=== PATIENT | female | born 1995 | race Caucasian/White ===

== ENCOUNTER 2016-04-24 16:08 | Emergency (ER) | payer BC, OTHER ==
--- NOTE | 2016-04-24 16:19 | ER Document Report ---
ED Medical Screen (RME) - General Stated Complaint: BACK PAIN Notes: 20 yo 11 weeks gestation c/o bilat flank pain, n/v. diagnosed with kidney infection last week, treated with Rocephin x 3 and oral Keflex but c/o worsening symptoms. - Related Data Allergies/Adverse Reactions: No Known Allergies Allergy (Unverified 04/24/16 16:15)
[2016-04-24 16:46] LABS: ABSOLUTE EOSINOPHILS # (AUTO) 0.2 10^3/uL (0.0-0.6); ABSOLUTE LYMPHOCYTES (AUTO) 2.8 10^3/uL (0.5-4.7); ABSOLUTE MONOCYTES (AUTO) 0.7 10^3/uL (0.1-1.4); ABSOLUTE NEUT (AUTO) 5.9 10^3/uL (1.7-8.2); BASOPHILS % (AUTO) 0.5 % (0-2); EOSINOPHILS % (AUTO) 1.6 % (0-6); HEMATOCRIT 37.5 % (36.0-47.0); HEMOGLOBIN 12.9 g/dL (12.0-15.5); HGB HCT DIFFERENCE 1.2; MEAN CORPUSCULAR HEMOGLOBIN 30.1 pg (27.0-33.4); MEAN CORPUSCULAR HGB CONC 34.4 g/dL (32.0-36.0); MEAN CORPUSCULAR VOLUME 88 fl (80-97); MONOCYTES % (AUTO) 7.3 % (3-13); RED BLOOD COUNT 4.27 10^6/uL (3.72-5.28); SEGMENTED NEUTROPHILS % (AUTO) 61.6 % (42-78); WHITE BLOOD COUNT 9.6 10^3/uL (4.0-10.5)
[2016-04-24 16:53] LABS: APPEARANCE,URINE CLEAR; BILIRUBIN,URINE NEGATIVE (NEGATIVE); GLUCOSE, URINE NEGATIVE (NEGATIVE); KETONES,URINE NEGATIVE (NEGATIVE); LEUKOCYTE ESTERASE,URINE NEGATIVE (NEGATIVE); NITRITE,URINE POSITIVE (NEGATIVE); PROTEIN,URINE NEGATIVE (NEGATIVE); URINE SPECIFIC GRAVITY 1.013
[2016-04-24 16:56] LABS: ALANINE AMINOTRANSFERASE 23 U/L (9-52); ALBUMIN 4.5 g/dL (3.5-5.0); ALKALINE PHOSPHATASE 64 U/L (38-126); ANION GAP 12 (5-19); ASPARTATE AMINO TRANSFERASE 18 U/L (14-36); BILIRUBIN,TOTAL 0.4 mg/dL (0.2-1.3); BLOOD UREA NITROGEN 6 mg/dL (7-20); CALCIUM 10.2 mg/dL (8.4-10.2); CARBON DIOXIDE 22 mmol/L (22-30); CHLORIDE 104 mmol/L (98-107); GLUCOSE 96 mg/dL (75-110); POTASSIUM 4.1 mmol/L (3.6-5.0); SODIUM 138.1 mmol/L (137-145); TOTAL PROTEIN 7.1 g/dL (6.3-8.2)
[2016-04-24] MEDS ORDERED: HYDROCODONE/ACETAMINOPHEN 5-325 MG 6 TAB/DSPK PO PRN (20:53)
--- NOTE | 2016-04-24 20:55 | ER Document Report ---
ED General - General Chief Complaint: Flank Pain Stated Complaint: BACK PAIN Notes: Patient is a 20-year-old female who is currently who presents with ongoing bilateral flank pain. States she was seen last week in [place] and diagnosed with pyelonephritis. She was treated with Keflex and states that her symptoms have not yet improved. Does describe a constant, dull, severe pain in the bilateral flanks. States she's been trying Tylenol at home with minimal improvement. Nothing worsens or symptoms. Notes ongoing dysuria. Denies any vaginal bleeding or discharge. She is not having vomiting or diarrhea. No chest pain or shortness of breath. She has not had fever. She's been taking the antibiotic as directed TRAVEL OUTSIDE OF THE [place] IN LAST 30 DAYS: No - Related Data Allergies/Adverse Reactions: No Known Allergies Allergy (Unverified 04/24/16 16:15) Past Medical History - General Information source: Patient - Social History Smoking Status: Never Smoker Chew tobacco use (# tins/day): No Frequency of alcohol use: None Drug Abuse: None Lives with: Spouse/Significant other Family History: Reviewed & Not Pertinent Patient has suicidal ideation: No Patient has homicidal ideation: No Renal/ Medical History: Denies: Hx Peritoneal Dialysis Review of Systems - Review of Systems Notes: Constitutional: Negative for fever. HENT: Negative for sore throat. Eyes: Negative for visual changes. Cardiovascular: Negative for chest pain. Respiratory: Negative for shortness of breath. Gastrointestinal: Negative for abdominal pain, vomiting or diarrhea. Positive for bilateral flank pain Genitourinary: Positive for dysuria. Musculoskeletal: Negative for back pain. Skin: Negative for rash. Neurological: Negative for headaches, weakness or numbness. 10 point ROS negative except as marked above and in HPI. Physical Exam - Vital signs Vitals: Temp Pulse BP Pulse Ox 97.7 F 100 123/70 96 04/24/16 18:53 04/24/16 18:53 04/24/16 18:53 04/24/16 18:53 Interpretation: Normal Notes: PHYSICAL EXAMINATION: GENERAL: Well-appearing, well-nourished and in no acute distress. HEAD: Atraumatic, normocephalic. EYES: Pupils equal round and reactive to light, extraocular movements intact, sclera anicteric, conjunctiva are normal. ENT: nares patent, oropharynx clear without exudates. Moist mucous membranes. NECK: Normal range of motion, supple without lymphadenopathy LUNGS: Breath sounds clear to auscultation bilaterally and equal. No wheezes rales or rhonchi. HEART: Regular rate and rhythm without murmurs ABDOMEN: Soft, nontender, normoactive bowel sounds. No guarding, no rebound. No masses appreciated. Bilateral CVA tenderness EXTREMITIES: Normal range of motion, no pitting or edema. No cyanosis. NEUROLOGICAL: No focal neurological deficits. Moves all extremities spontaneously and on command. PSYCH: Normal mood, normal affect. SKIN: Warm, Dry, normal turgor, no rashes or lesions noted. Course - Re-evaluation Re-evalutation: 04/24/16 20:53 Patient is currently 11 weeks presenting with bilateral flank pain after being diagnosed with pyelonephritis approximately one week ago. She is still on Keflex. Labs today are completely unremarkable without any evidence of acute kidney injury or ongoing urinary tract infection. Bedside ultrasound does show any evidence of hydronephrosis. Intrauterine identified a bedside ultrasound, cardiac activity 156 bpm. Active movement. I suspect patient's pain is related to ongoing inflammation in the kidneys after her infection and should result resolve in the next coming days. Instructed her to follow-up with her primary care doctor as scheduled.At this time will discharge with return precautions and follow-up recommendations. Verbal discharge instructions given a the bedside and opportunity for questions given. Medication warnings reviewed. Patient is in agreement with this plan and has verbalized understanding of return precautions and the need for primary care follow-up in the next 24-72 hours. - Vital Signs Vital signs: Temp Pulse Resp BP Pulse Ox 98.0 F 84 16 125/75 100 04/24/16 21:10 04/24/16 21:10 04/24/16 21:10 04/24/16 21:10 04/24/16 21:10 - Laboratory Result Diagrams: 04/24/16 16:25 04/24/16 16:25 Laboratory results interpreted by me: 04/24/16 04/24/16 16:25 16:25 BUN 6 L Creatinine 0.40 L Urine Nitrite POSITIVE H Urine Urobilinogen 4.0 H Discharge - Discharge Clinical Impression: Bilateral flank pain Condition: Good Disposition: HOME, SELF-CARE Additional Instructions: Please take the [place] only at night to help control your pain so you can sleep. The pain should improve in the next 2-3 days and the need to return if not improving in that time or if getting worse. Please also return if he develops vomiting, fever greater than 100.4F, began having vaginal bleeding or discharge , or have any other symptoms that are worrisome to you.
[2016-04-24 21:36] VITALS: BP 125/75
== END 2016-04-24 21:18 | disposition home or self-care (01) ==
LOC: ER 16:08
DX: O26.91 Pregnancy related conditions, unspecified, first trimester (principal); R10.9 Unspecified abdominal pain; Z3A.11 11 weeks gestation of pregnancy
CPT/HCPCS: 36415; 80053; 81001; 85025; 99284

== ENCOUNTER 2016-05-01 17:43 | Emergency (ER) | payer BC, OTHER ==
--- NOTE | 2016-05-01 18:05 | ER Document Report ---
ED Medical Screen (RME) - General Stated Complaint: PAINFUL URINATION,FLANK PAIN Notes: 20 yo female c/o bilat flank pain, dysuria x 3 weeks. treated for kidney infection 2 weeks ago. treated with Rocephin x 2 and keflex but reports symptoms are worsening. + n/v. . 13 weeks gestation. + spotting. pt has hx/o DVT and PE, presently on Lovenox stroke last month, some residual left sided weakness. TRAVEL OUTSIDE OF THE [place] IN LAST 30 DAYS: No - Related Data Allergies/Adverse Reactions: No Known Allergies Allergy (Unverified 04/24/16 16:15) Past Medical History Renal/ Medical History: Denies: Hx Peritoneal Dialysis Physical Exam - Vital signs Vitals: Temp Pulse Resp BP Pulse Ox 98.0 F 105 H 20 125/74 98 05/01/16 17:52 05/01/16 17:52 05/01/16 17:52 05/01/16 17:52 05/01/16 17:52 Course - Vital Signs Vital signs: Temp Pulse Resp BP Pulse Ox 98.0 F 105 H 20 125/74 98 05/01/16 17:52 05/01/16 17:52 05/01/16 17:52 05/01/16 17:52 05/01/16 17:52
[2016-05-01 18:52] LABS: ABSOLUTE EOSINOPHILS # (AUTO) 0.1 10^3/uL (0.0-0.6); ABSOLUTE LYMPHOCYTES (AUTO) 2.8 10^3/uL (0.5-4.7); ABSOLUTE MONOCYTES (AUTO) 0.8 10^3/uL (0.1-1.4); BASOPHILS % (AUTO) 0.3 % (0-2); EOSINOPHILS % (AUTO) 0.8 % (0-6); HEMATOCRIT 37.8 % (36.0-47.0); HEMOGLOBIN 12.7 g/dL (12.0-15.5); HGB HCT DIFFERENCE 0.3; LYMPHOCYTES % (AUTO) 22.3 % (13-45); MEAN CORPUSCULAR HEMOGLOBIN 29.5 pg (27.0-33.4); MEAN CORPUSCULAR HGB CONC 33.5 g/dL (32.0-36.0); MEAN CORPUSCULAR VOLUME 88 fl (80-97); MONOCYTES % (AUTO) 6.3 % (3-13); RED BLOOD COUNT 4.29 10^6/uL (3.72-5.28); RED CELL DISTRIBUTION WIDTH 13.1 % (11.5-14.0); SEGMENTED NEUTROPHILS % (AUTO) 70.3 % (42-78); WHITE BLOOD COUNT 12.7 10^3/uL (4.0-10.5)
[2016-05-01 21:14] LABS: APPEARANCE,URINE SLIGHTLY-CLOUDY; BILIRUBIN,URINE NEGATIVE (NEGATIVE); GLUCOSE, URINE NEGATIVE (NEGATIVE); KETONES,URINE TRACE mg/dL (NEGATIVE); LEUKOCYTE ESTERASE,URINE NEGATIVE (NEGATIVE); NITRITE,URINE NEGATIVE (NEGATIVE); PROTEIN,URINE NEGATIVE (NEGATIVE); URINE SPECIFIC GRAVITY 1.027; UROBILINOGEN,URINE NEGATIVE mg/dL (<2.0)
[2016-05-01] MEDS ORDERED: OXYCODONE-ACETAMINOPHEN 5-325 MG TABLET PO ONE (21:55)
[2016-05-01] MEDS ORDERED: HYDROCODONE/ACETAMINOPHEN 5-325 MG 6 TAB/DSPK PO PRN (22:12)
--- NOTE | 2016-05-01 22:13 | ER Document Report ---
ED General - General Chief Complaint: Urinary Problem Stated Complaint: PAINFUL URINATION,FLANK PAIN Notes: Patient is a 20-year-old who presents with bilateral flank pain that has been present for the past 2 weeks after she was diagnosed with pyelonephritis. Does describe the pain as a constant, dull, aching pain. I saw this patient one week ago for the same complaint and she states that her symptoms have not improved since that time. Denies any associated fever, nausea, vomiting, vaginal bleeding or discharge. She is currently 12 weeks . She has not yet followed up with primary care doctor regarding today's concerns. She is not noticing improves or worsens or symptoms. TRAVEL OUTSIDE OF THE [place] IN LAST 30 DAYS: No - Related Data Allergies/Adverse Reactions: No Known Allergies Allergy (Verified 05/01/16 18:02) Past Medical History - General Information source: Patient - Social History Smoking Status: Current Some Day Smoker Chew tobacco use (# tins/day): No Frequency of alcohol use: None Drug Abuse: None Lives with: Spouse/Significant other Family History: Reviewed & Not Pertinent Patient has suicidal ideation: No Patient has homicidal ideation: No Renal/ Medical History: Denies: Hx Peritoneal Dialysis Review of Systems - Review of Systems Notes: Constitutional: Negative for fever. HENT: Negative for sore throat. Eyes: Negative for visual changes. Cardiovascular: Negative for chest pain. Respiratory: Negative for shortness of breath. Gastrointestinal: Negative for abdominal pain, vomiting or diarrhea. Genitourinary: Positive for dysuria and bilateral flank pain Musculoskeletal: Negative for back pain. Skin: Negative for rash. Neurological: Negative for headaches, weakness or numbness. 10 point ROS negative except as marked above and in HPI. Physical Exam - Vital signs Vitals: Temp Pulse Resp BP Pulse Ox 98.0 F 105 H 20 125/74 98 05/01/16 17:52 05/01/16 17:52 05/01/16 17:52 05/01/16 17:52 05/01/16 17:52 Interpretation: Tachycardic Notes: PHYSICAL EXAMINATION: GENERAL: Well-appearing, well-nourished and in no acute distress. HEAD: Atraumatic, normocephalic. EYES: Pupils equal round and reactive to light, extraocular movements intact, sclera anicteric, conjunctiva are normal. ENT: nares patent, oropharynx clear without exudates. Moist mucous membranes. NECK: Normal range of motion, supple without lymphadenopathy LUNGS: Breath sounds clear to auscultation bilaterally and equal. No wheezes rales or rhonchi. HEART: Regular rate and rhythm without murmurs ABDOMEN: Soft, nontender, normoactive bowel sounds. No guarding, no rebound. No masses appreciated. Severe bilateral CVA tenderness. EXTREMITIES: Normal range of motion, no pitting or edema. No cyanosis. NEUROLOGICAL: No focal neurological deficits. Moves all extremities spontaneously and on command. PSYCH: Normal mood, normal affect. SKIN: Warm, Dry, normal turgor, no rashes or lesions noted. Course - Re-evaluation Re-evalutation: 05/01/16 22:13 Patient presents ongoing bilateral flank pain which has not improved since I last saw days ago. Again a bedside ultrasound does not show any evidence of hydronephrosis and living intrauterine is identified with a heart rate of 152. She does have persistent bilateral CVA tenderness concerning for a possible renal abscess versus obstruction although again there is no evidence of this on ultrasound at the bedside. Her urinalysis continues to be clear without any evidence of infection. Her laboratories again today are unremarkable. I wanted to obtain a formal ultrasound of the kidneys to better evaluate. Likewise I informed the patient about complete a pelvic exam and would consider further abdominal imaging if her pain persisted. 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 The patient has chosen to leave the facility against medical advice. The relevant issues have been reviewed and discussed with the patient and family at the bedside. At the time of this assessment there is no indication for involuntary commitment. The patient is alert, oriented, and able to express clearly their reasoning for not wanting to remain in the emergency department for further treatment. The patient is not clinically psychotic, intoxicated, and denies and suicidal ideation. Differential or suspected diagnoses based on medical screening exam: Possible renal abscess, obstruction The patient is aware of the concerning diagnoses and acknowledges understanding of the reasons for the following recommendations: That she remain in the emergency department for complete evaluation of her continuing bilateral flank pain The following recommendations/services were offered and refused: Renal ultrasound, consideration of additional abdominal imaging should pain failure to improve, pelvic examination The following risks were explained: , permanent disability, loss of function , loss of Clinical impression: Patient is competent to make decisions regarding the medical that is being offered. - Vital Signs Vital signs: Temp Pulse Resp BP Pulse Ox 97.7 F 82 20 120/76 98 05/01/16 20:00 05/01/16 20:00 05/01/16 20:50 05/01/16 20:00 05/01/16 20:00 - Laboratory Result Diagrams: 05/01/16 18:15 Laboratory results interpreted by me: 05/01/16 05/01/16 05/01/16 18:15 18:15 20:50 WBC 12.7 H Absolute Neutrophils 9.0 H Beta HCG, Quant 00886.00 H Urine Ketones TRACE H Discharge - Discharge Clinical Impression: Bilateral flank pain Condition: Fair Disposition: AGAINST MEDICAL ADVICE Additional Instructions: You need a more complete evaluation than what we were able to get done today. Please return if you want to complete your workup which would include a kidney ultrasound and possibly an abdominal MRI to help clarify if you are having anything more serious going on. Please also contact urology and obgyn for follow -up.
[2016-05-01 22:30] VITALS: BP 120/76
== END 2016-05-01 22:24 | disposition left against medical advice (07) ==
LOC: ER 17:43
DX: O26.91 Pregnancy related conditions, unspecified, first trimester (principal); R30.0 Dysuria; R10.9 Unspecified abdominal pain; O99.331 Smoking (tobacco) complicating pregnancy, first trimester; F17.200 Nicotine dependence, unspecified, uncomplicated; Z3A.12 12 weeks gestation of pregnancy
CPT/HCPCS: 36415; 81001; 84702; 85025; 99283

== ENCOUNTER 2016-05-04 00:57 | Emergency (ER) | payer BC, OTHER ==
[2016-05-04] MEDS ORDERED: NORMAL SALINE 1000 ML 1,000 ML IV ONE (01:26)
--- NOTE | 2016-05-04 01:37 | ER Document Report ---
ED General - General Chief Complaint: Urinary Problem Stated Complaint: FEVER Notes: Patient is a 20-year-old female who is who presents with complaints of being possible mission for polynephritis. She says that she recently just left [facility] and she was going to be admitted there for pyelonephritis. She said she left the hospital because she wanted to be closer to home. She was given Rocephin there. She complains of bilateral back pain. Some dysuria. No abnormal vaginal discharge or bleeding. She says this is her fourth . She's had 2 miscarriages and one live child. She had an ultrasound at [facility] which she said showed "swollen kidneys ". She was seen here 3 days ago for the same symptoms. Urinalysis was completely negative. She was recommend that we do official ultrasound. She refuses this. She left AMA. TRAVEL OUTSIDE OF THE [place] IN LAST 30 DAYS: No - Related Data Allergies/Adverse Reactions: No Known Allergies Allergy (Verified 05/04/16 01:17) Past Medical History - Social History Smoking Status: Current Some Day Smoker Chew tobacco use (# tins/day): No Frequency of alcohol use: None Drug Abuse: None Family History: Reviewed & Not Pertinent Patient has suicidal ideation: No Patient has homicidal ideation: No Renal/ Medical History: Denies: Hx Peritoneal Dialysis Review of Systems - Review of Systems Notes: My Normal Review Basic REVIEW OF SYSTEMS: CONSTITUTIONAL : Denies fever, chills, or sweats. Denies recent illness. EENT: Denies eye, ear, throat, or mouth pain or symptoms. Denies nasal or sinus congestion. RESPIRATORY: Denies cough, cold, or chest congestion. Denies shortness of breath, difficulty breathing, or wheezing. GASTROINTESTINAL: Denies abdominal pain. Denies nausea, vomiting, or diarrhea. Denies constipation. Last BM: GENITOURINARY: Some dysuria FEMALE GENITOURINARY: Denies vaginal bleeding, abnormal or irregular periods. LMP: Currently MUSCULOSKELETAL: Denies neck or back pain or joint pain or swelling. SKIN: Denies rash or skin lesions. NEUROLOGICAL: Denies altered mental status or loss of consciousness. Denies headache. Denies weakness or paralysis or loss of use of either side. Denies problems with gait or speech. Denies sensory or motor loss. ALL OTHER SYSTEMS REVIEWED AND NEGATIVE. Physical Exam - Vital signs Vitals: Temp Pulse Resp BP Pulse Ox 97.7 F 80 20 114/53 L 99 05/04/16 01:17 05/04/16 01:17 05/04/16 01:05/04/16 01:05/04/16 01:17 - Notes Notes: General Appearance: Well nourished, alert, cooperative, no acute distress, mild obvious discomfort. Vitals: reviewed, See vital signs table. Head: no swelling or tenderness to the head Eyes: PERRL, EOMI, Conjuctiva clear Mouth: No decreasd moisture Neck: Supple, no neck tenderness, No thyromegaly Lungs: No wheezing, No rales, No rhonci, No accessory muscle use, good air exchange bilaterally. Heart: Normal rate, Regular rythm, No murmur, no rub Abdomen: Normal BS, soft, No rigidity, No reproducible abdominal tenderness to palpation, No guarding, no rebound, no abdominal masses, no organomegaly Extremities: strength 5/5 in all extremities, good pulses in all extremities, no swelling or tenderness in the extremities, no edema. Skin: warm, dry, appropriate color, no rash Neuro: speech clear, oriented x 3, normal affect, responds appropriately to questions. Course - Re-evaluation Re-evalutation: 05/04/16 02:06 Patient did give me verbal permission as well as sign a records request document so I could get information from [facility]. I did call the ER there and spoke with the ER physician, Dr. Vazquez, who cared for her. They are going to send the official hard copies of the records. She did go over the results with me over the phone the help expedite things. Ultrasound did not show any abnormalities. They did both an OB ultrasound and a renal ultrasound. Both were normal. Her urinalysis showed only 1 white blood cell. There are no signs of infection on the UA. She did not have a fever there. Her temp was 37.4C. Her CBC showed a mildly elevated white blood cell count 12.6. They did offer admission because of her continued pain but the patient refused and signed out AMA because she wanted to come down here instead. - Vital Signs Vital signs: Temp Pulse Resp BP Pulse Ox 97.7 F 80 20 114/53 L 99 05/04/16 01:17 05/04/16 01:17 05/04/16 01:17 05/04/16 01:17 05/04/16 01:17 - Laboratory Result Diagrams: 05/04/16 01:35 05/04/16 01:35 Laboratory results interpreted by me: 05/04/16 05/04/16 05/04/16 01:35 01:35 01:35 WBC 13.0 H Absolute Neutrophils 8.3 H Carbon Dioxide 21 L BUN 5 L Creatinine 0.41 L Urine Nitrite POSITIVE H Ur Leukocyte Esterase LARGE H - Transfer of Care Notes: 05/04/16 03:17 I did review all the records sent from [facility]. Her renal ultrasounds and OB ultrasounds were completely normal. Her white blood cell count there was 12.6. Here is 13. There is really no negligible difference. AT [facility] she did have positive nitrites with 1 white blood cell. Here her urine has positive nitrites with 7 white blood cells; however, there is also a large amount of squamous cells in her urine which suggested this could potentially be contaminant. Patient clinically does not look very ill. Her vital signs do not at all suggest pyelonephritis. It appears that this back pain has been ongoing for many weeks since she left [place]. This is now her third visit here to the ER and her urinalysis has never looked concerning for pyelonephritis. She denies any abnormal vaginal discharge or bleeding. I did discuss the case with Dr. Minnie Saucedo, our automotive service advisor family consumer scientist, who agrees with me that the laboratory findings are more consistent with that of a contaminated urine or mild UTI. I feel that the patient can be discharged home being that the patient has no fever, only minimally elevated white blood cell count, and completely normal vital signs. Dr. Saucedo agrees. Dr. Saucedo said that she would follow up the patient very closely at her office on Friday. She requests the patient call the office very early Friday morning for close follow-up appointment and she will follow-up on the urine culture results and recheck the patient and also help establish her for her continued OB care. I did explain the plan to the patient. She is very agreeable to this. She does agree to return to ER immediately if she develops fever, vomiting, or feels that she is worsening. Dictation of this chart was performed using voice recognition software; therefore, there may be some unintended grammatical errors. Discharge - Discharge Clinical Impression: Qualifiers: Weeks of gestation: unspecified Qualified Code(s): Z33.1 - state, incidental UTI (urinary tract infection) Qualifiers: Urinary tract infection type: site unspecified Hematuria presence: without hematuria Qualified Code(s): N39.0 - Urinary tract infection, site not specified Condition: Good Disposition: HOME, SELF-CARE Additional Instructions: URINARY TRACT INFECTION: Your evaluation indicates that you have a urinary tract infection. This is due to germs growing in the bladder. This is a common problem. This infection usually responds quickly to antibiotics. Your antibiotic should be taken exactly as prescribed. Drink plenty of fluids -- three to four quarts a day. Occasionally, a bladder anesthetic will be prescribed to help stop the feeling of urgency until the antibiotic has a chance to clear the infection. This may cause your urine to be dark orange. Certain urine infections require a culture. If the doctor obtained a culture, the results will be back in two days. You should call to see if a change in treatment is needed. A repeat urinalysis after you finish treatment is often recommended. The physician will let you know if further testing is required. Call the doctor if you develop fever, chills, flank pain, inability to urinate, or blood in the urine. ANTIBIOTIC THERAPY: You have been given an antibiotic prescription. It's important that you take all the medication, unless instructed otherwise by your physician. Failure to complete the entire course can result in relapse of your condition. Common side effects of antibiotics include nausea, intestinal cramping, or diarrhea. Women may develop vaginal yeast infections, and babies can get yeast (thrush) in the mouth following the use of antibiotics. Contact your physician if you develop significant side effects from this medication. Allergy to this antibiotic can result in hives, wheezing, faintness, or itching. If symptoms of allergy occur, stop the medication and call the doctor. NITROFURANTOIN (MACRODANTIN, MACROBID): You have received a prescription for nitrofurantoin (Macrodantin). This antibiotic is used for urinary tract infections. Women who are or nursing should notify the physician before taking this medicine. If you have ever had a problem caused by this medication in the past, be sure the physician is aware of it. Common side effects of this medicine include nausea, vomiting, or decreased appetite. Notify your physician if these side effects become severe. Immediately stop this medicine and call the physician if you develop cough , shortness of breath, chest pain, weakness, jaundice (yellow color of the skin and whites of the eyes), or a skin rash. FOLLOW-UP CARE: If you have been referred to a physician for follow-up care, call the physician s office for an appointment as you were instructed or within the next two days. If you experience worsening or a significant change in your symptoms, notify the physician immediately or return to the Emergency Department at any time for re-evaluation. Please take the antibiotic as prescribed. Please follow up closely with the [facility] on Friday. Please call the office and tell them you were seen in the ER and your case was discussed with Dr. Saucedo. Please inform them that Dr. Saucedo wants reevaluated on Friday in the office. Your urine has been sent for culture. The culture results should be back on Friday and will be discussed with you when you're reevaluated at the [facility]. It is extremely important that you return to ER immediately if you have fevers, vomiting, vaginal bleeding, abnormal vaginal discharge, or feel that your worsening in any way. Prescriptions: Nitrofurantoin/Nitrofuran Mac [Macrobid 100 mg Capsule] 1 tab PO BID #20 capsule Referrals: MINNIE SAUCEDO MD [ACTIVE STAFF] - 05/06/16
[2016-05-04 01:52] LABS: ABSOLUTE BASOPHILS # (AUTO) 0.1 10^3/uL (0.0-0.2); ABSOLUTE EOSINOPHILS # (AUTO) 0.2 10^3/uL (0.0-0.6); ABSOLUTE LYMPHOCYTES (AUTO) 3.7 10^3/uL (0.5-4.7); ABSOLUTE MONOCYTES (AUTO) 0.8 10^3/uL (0.1-1.4); ABSOLUTE NEUT (AUTO) 8.3 10^3/uL (1.7-8.2); BASOPHILS % (AUTO) 0.6 % (0-2); EOSINOPHILS % (AUTO) 1.4 % (0-6); HEMATOCRIT 39.3 % (36.0-47.0); HEMOGLOBIN 13.3 g/dL (12.0-15.5); HGB HCT DIFFERENCE 0.6; LYMPHOCYTES % (AUTO) 28.3 % (13-45); MEAN CORPUSCULAR HEMOGLOBIN 29.8 pg (27.0-33.4); MEAN CORPUSCULAR HGB CONC 33.8 g/dL (32.0-36.0); MEAN CORPUSCULAR VOLUME 88 fl (80-97); MONOCYTES % (AUTO) 6.1 % (3-13); RED BLOOD COUNT 4.45 10^6/uL (3.72-5.28); SEGMENTED NEUTROPHILS % (AUTO) 63.6 % (42-78)
[2016-05-04 01:58] LABS: APPEARANCE,URINE SLIGHTLY-CLOUDY; BILIRUBIN,URINE NEGATIVE (NEGATIVE); GLUCOSE, URINE NEGATIVE (NEGATIVE); KETONES,URINE NEGATIVE (NEGATIVE); LEUKOCYTE ESTERASE,URINE LARGE (NEGATIVE); NITRITE,URINE POSITIVE (NEGATIVE); PROTEIN,URINE NEGATIVE (NEGATIVE); URINE SPECIFIC GRAVITY 1.009; UROBILINOGEN,URINE NEGATIVE mg/dL (<2.0)
[2016-05-04 02:05] LABS: ANION GAP 13 (5-19); BLOOD UREA NITROGEN 5 mg/dL (7-20); CALCIUM 9.8 mg/dL (8.4-10.2); CARBON DIOXIDE 21 mmol/L (22-30); CHLORIDE 107 mmol/L (98-107); CREATININE RESULT 0.41 mg/dL (0.52-1.25); GLUCOSE 102 mg/dL (75-110); POTASSIUM 3.7 mmol/L (3.6-5.0); SODIUM 141.3 mmol/L (137-145)
[2016-05-04] MEDS ORDERED: ACETAMINOPHEN 325 MG TABLET PO ONE (02:11)
[2016-05-04] MEDS ORDERED: ONDANSETRON HCL INJ/PF 4 MG/2 ML SDV IV ONE (02:11)
[2016-05-04] MEDS ORDERED: NITROFURANTOIN MONOHYD/M-CRYST 100 MG CAPSULE PO ONE (03:12)
[2016-05-04 03:55] VITALS: BP 109/51
== END 2016-05-04 03:57 | disposition home or self-care (01) ==
LOC: ER 00:57
DX: N39.0 Urinary tract infection, site not specified (principal); R39.198 Other difficulties with micturition; R50.9 Fever, unspecified; F17.210 Nicotine dependence, cigarettes, uncomplicated; Z33.1 Pregnant state, incidental
CPT/HCPCS: 99283; 96374; 36415; 87086; 85025; 87088; 80048; 81001; J2405; J7030; J8499

== ENCOUNTER → 2016-05-07 | Outpatient (CLI) | payer BC, OTHER | LOC: OD 11:21 | PROVIDERS: ATTEND Urology | DX: N39.0 Urinary tract infection, site not specified (principal) | CPT/HCPCS: 74000; 87086; 87088; 87186 ==

== ENCOUNTER 2016-05-24 17:48 | Emergency (ER) | payer BC, OTHER ==
[2016-05-24 18:24] VITALS: BP 117/87
[2016-05-24] MEDS ORDERED: OXYCODONE-ACETAMINOPHEN 5-325 MG TABLET PO ONE (18:24)
--- NOTE | 2016-05-24 18:26 | ER Document Report ---
ED Medical Screen (RME) - General Stated Complaint: FALL/R KNEE INJURY Notes: Patient states she was working on rebuilding her fire pit and lost her balance hitting right knee on tree branches. Has a piece of branch sticking out of her knee. Pulled all the other ones out. Patient states she has had about 10 surgeries to the right knee in the past. I have greeted and performed a rapid initial assessment of this patient. A comprehensive ED assessment and evaluation of the patient, analysis of test results and completion of the medical decision making process will be conducted by additional ED providers. TRAVEL OUTSIDE OF THE [place] IN LAST 30 DAYS: No - Related Data Allergies/Adverse Reactions: No Known Allergies Allergy (Verified 05/24/16 18:24) Past Medical History Renal/ Medical History: Denies: Hx Peritoneal Dialysis - Immunizations Hx Diphtheria, Pertussis, Tetanus Vaccination: Yes Physical Exam - Extremities Notes: Patient with a 3-4 inch piece of wood sticking out of medial right knee. No bleeding at this time.
--- NOTE | 2016-05-24 19:04 | ER Document Report ---
ED General - General Chief Complaint: Knee Injury Stated Complaint: FALL/R KNEE INJURY Mode of Arrival: Ambulatory Information source: Patient Notes: 20-year-old female with previous right knee surgeries presents after falling into a fireplace area and having a piece of wood stick in her. Patient removed to the larger twig but beleived a smaller one ot be in deeper TRAVEL OUTSIDE OF THE [place] IN LAST 30 DAYS: No - HPI Onset: Just prior to arrival Onset/Duration: Sudden Quality of pain: Achy Severity: Mild Pain Level: 1 Associated symptoms: None Exacerbated by: Denies Relieved by: Denies Similar symptoms previously: No Recently seen / treated by doctor: No - Related Data Allergies/Adverse Reactions: No Known Allergies Allergy (Verified 05/24/16 18:24) Past Medical History - Social History Smoking Status: Current Every Day Smoker Cigarette use (# per day): Yes Chew tobacco use (# tins/day): No Smoking Education Provided: No Frequency of alcohol use: None Drug Abuse: None Family History: Reviewed & Not Pertinent Renal/ Medical History: Denies: Hx Peritoneal Dialysis - Immunizations Hx Diphtheria, Pertussis, Tetanus Vaccination: Yes Review of Systems - Review of Systems Notes: REVIEW OF SYSTEMS: CONSTITUTIONAL : Denies fever, chills, or sweats. Denies recent illness. EENT: Denies eye, ear, throat, or mouth pain or symptoms. Denies nasal or sinus congestion or discharge. Denies throat, tongue, or mouth swelling or difficulty swallowing. CARDIOVASCULAR: Denies chest pain. Denies palpitations or racing or irregular heart beat. Denies ankle edema. RESPIRATORY: Denies cough, cold, or chest congestion. Denies shortness of breath, difficulty breathing, or wheezing. GASTROINTESTINAL: Denies abdominal pain or distention. Denies nausea, vomiting , or diarrhea. Denies blood in vomitus, stools, or per rectum. Denies black, tarry stools. Denies constipation. GENITOURINARY: Denies difficulty urinating, painful urination, burning, frequency, blood in urine, or discharge. FEMALE GENITOURINARY: Denies vaginal bleeding, heavy or abnormal periods, irregular periods. Denies vaginal discharge or odor. MUSCULOSKELETAL: Denies back or neck pain or stiffness. Denies joint pain or swelling. SKIN: Laceration right medial knee HEMATOLOGIC : Denies easy bruising or bleeding. LYMPHATIC: Denies swollen, enlarged glands. NEUROLOGICAL: Denies confusion or altered mental status. Denies passing out or loss of consciousness. Denies dizziness or lightheadedness. Denies headache. Denies weakness or paralysis or loss of use of either side. Denies problems with gait or speech. Denies sensory loss, numbness, or tingling. Denies seizures. PSYCHIATRIC: Denies anxiety or stress. Denies depression, suicidal ideation, or homicidal ideation. ALL OTHER SYSTEMS REVIEWED AND NEGATIVE. Dictation was performed using [employer] voice recognition software PHYSICAL EXAMINATION: GENERAL: Well-appearing, well-nourished and in no acute distress. HEAD: Atraumatic, normocephalic. EYES: Pupils equal round extraocular movements intact, conjunctiva are normal. ENT: Nares patent NECK: Normal range of motion LUNGS: No respiratory distress Musculoskeletal: Normal range of motion NEUROLOGICAL: Normal speech, normal gait. PSYCH: Normal mood, normal affect. SKIN: Small twig sticking out of laceration measuring 2 cm of the right medial aspect of the knee Physical Exam - Vital signs Vitals: Temp Pulse Resp BP Pulse Ox 98.0 F 116 H 18 117/87 H 100 05/24/16 18:20 05/24/16 18:20 05/24/16 18:20 05/24/16 18:20 05/24/16 18:20 Course - Re-evaluation Re-evalutation: 05/24/16 19:35 Twig Was removed with no difficulty, area extensively cleansed, xray no acute abnormality will dc with antiovitcs and follow up with ortho After performing a Medical Screening Examination, I estimate there is LOW risk for INTRACRANIAL HEMORRHAGE, UNSTABLE SPINE FRACTURE, CENTRAL CORD SYNDROME, CAUDA EQUINA, THORACIC AORTIC DISSECTION, PNEUMOTHORAX, PERFORATED BOWEL, RUPTURED ABDOMINAL AORTIC ANEURYSM, ACUTE TENDON RUPTURE, COMPARTMENT SYNDROME, or OPEN FRACTURE, thus I consider the discharge disposition reasonable. Also, there is no evidence or peritonitis, sepsis, or toxicity. The patient and I have discussed the diagnosis and risks, and we agree with discharging home to follow-up with their primary doctor with the understanding that symptoms and presentations can change. We also discussed returning to the Emergency Department immediately if new or worsening symptoms occur. We have discussed the symptoms which are most concerning (e.g., bloody stool, fever, changing or worsening pain, vomiting) that necessitate immediate return. - Vital Signs Vital signs: Temp Pulse Resp BP Pulse Ox 98.0 F 116 H 18 117/87 H 100 05/24/16 18:20 05/24/16 18:20 05/24/16 18:20 05/24/16 18:20 05/24/16 18:20 - Diagnostic Test Radiology reviewed: Image reviewed, Reports reviewed Discharge - Discharge Clinical Impression: Foreign body of knee Qualifiers: Encounter type: initial encounter Laterality: right Qualified Code(s): S80.251A - Superficial foreign body, right knee, initial encounter Condition: Stable Disposition: HOME, SELF-CARE Instructions: Suspected Internal Knee Injury ([facility]) Additional Instructions: Return immediately if there is any sign of infection or any other concerns Prescriptions: Clindamycin HCl 300 mg PO Q6 #40 capsule Hydrocodone/Acetaminophen [[place] 5-325 mg Tablet] 1 tab PO Q6 #14 tablet Referrals: SHERYL VELA MD [ACTIVE STAFF] - Follow up in 3-5 days
== END 2016-05-24 19:30 | disposition home or self-care (01) ==
LOC: ER 17:48
DX: S80.251A Superficial foreign body, right knee, initial encounter (principal); W19.XXXA Unspecified fall, initial encounter; F17.210 Nicotine dependence, cigarettes, uncomplicated
CPT/HCPCS: 99283

== ENCOUNTER → 2016-06-18 | Outpatient (CLI) | payer BC, OTHER ==
[2016-06-18 17:23] LABS: ABSOLUTE LYMPHOCYTES (AUTO) 2.9 10^3/uL (0.5-4.7); ABSOLUTE MONOCYTES (AUTO) 0.9 10^3/uL (0.1-1.4); ABSOLUTE NEUT (AUTO) 9.2 10^3/uL (1.7-8.2); BASOPHILS % (AUTO) 0.3 % (0-2); EOSINOPHILS % (AUTO) 0.4 % (0-6); HEMATOCRIT 34.5 % (36.0-47.0); HEMOGLOBIN 11.8 g/dL (12.0-15.5); HGB HCT DIFFERENCE 0.9; MEAN CORPUSCULAR HEMOGLOBIN 29.9 pg (27.0-33.4); MEAN CORPUSCULAR HGB CONC 34.3 g/dL (32.0-36.0); MEAN CORPUSCULAR VOLUME 87 fl (80-97); MONOCYTES % (AUTO) 6.9 % (3-13); RED BLOOD COUNT 3.96 10^6/uL (3.72-5.28); RED CELL DISTRIBUTION WIDTH 14.3 % (11.5-14.0); SEGMENTED NEUTROPHILS % (AUTO) 70.4 % (42-78); WHITE BLOOD COUNT 13.1 10^3/uL (4.0-10.5)
[2016-06-18 18:04] LABS: ERYTHROCYTE SEDIMENTATION RATE 28 mm/hr (0-20)
== END ==
LOC: OD 16:17
PROVIDERS: ATTEND Physician Assistant
DX: T81.30XD Disruption of wound, unspecified, subsequent encounter (principal)
CPT/HCPCS: 36415; 85025; 85652; 86140

== ENCOUNTER 2016-07-31 16:58 | Outpatient (CLI) | payer BC, OTHER ==
--- NOTE | 2016-07-31 19:09 | RADIOLOGY REPORT (SQ) ---
EXAM DESCRIPTION: U/S OB LIMITED COMPLETED DATE/TIME: 07/31/2016 6:56 pm REASON FOR STUDY: cervical length, rule out labor COMPARISON: None. TECHNIQUE: Limited transvaginal and transabdominal grayscale ultrasound for evaluation of specific r equested obstetrical parameters. LIMITATIONS: None. FINDINGS: CERVICAL LENGTH: 4.5 cm closed with fluid posterior. MARIAH: 5.2 cm. FHR: 162 beats per minute. PRESENTATION: Transverse OTHER: No other significant findings. IMPRESSION: LIMITED OBSTETRICAL ULTRASOUND WITH MEASURED PARAMETERS DELINEATED ABOVE. Trimester of : Second trimester - 13 weeks 1 day to 27 weeks 6 days. TECHNICAL DOCUMENTATION: JOB ID: [id number]- All Rights Reserved
== END 2016-07-31 19:00 | disposition home or self-care (01) ==
LOC: LC 16:58
PROVIDERS: ATTEND Obstetrics & Gynecology
PROC: 4A1HXCZ Monitoring of Products of Conception, Cardiac Rate, External Approach (ICD-10-PCS; principal; 2016-07-31)
DX: O47.02 False labor before 37 completed weeks of gestation, second trimester (principal); Z3A.25 25 weeks gestation of pregnancy
CPT/HCPCS: 76815

== ENCOUNTER 2016-08-27 17:25 | Emergency (ER) | payer BC, OTHER ==
[2016-08-27 18:01] VITALS: BP 147/99
[2016-08-27] MEDS ORDERED: HYDROCODONE/ACETAMINOPHEN 5-325 MG TABLET PO ONE (18:23)
[2016-08-27] MEDS ORDERED: IBUPROFEN 600 MG TABLET PO ONE (18:24)
--- NOTE | 2016-08-27 18:27 | ER Document Report ---
ED Medical Screen (RME) - General Chief Complaint: Post Problem Stated Complaint: POST OP COMPLICATION Time Seen by Provider: 08/27/16 18:18 Notes: Patient is a 20-year-old female, , presents with bleeding from her C- section wound. She had a on 08/02 for a distressed 25 week fetus at [facility]. Her wound dehisced 2 weeks later and she was taken for emergent repair at [facility]. For the past 2 hours, she noticed bleeding from the wound, similar to when her wound dehisced last time. PE: surgical wound, with small amount of bleeding from wound, mild tenderness around wound, no surrounding erythema I have greeted and performed a rapid initial assessment of this patient. A comprehensive ED assessment and evaluation of the patient, analysis of test results and completion of the medical decision making process will be conducted by additional ED providers. TRAVEL OUTSIDE OF THE [place] IN LAST 30 DAYS: No - Related Data Allergies/Adverse Reactions: No Known Allergies Allergy (Verified 05/24/16 18:24) Past Medical History Renal/ Medical History: Denies: Hx Peritoneal Dialysis - Immunizations Hx Diphtheria, Pertussis, Tetanus Vaccination: Yes Physical Exam - Vital signs Vitals: Temp Pulse Resp BP Pulse Ox 98.1 F 93 20 147/99 H 98 08/27/16 17:59 08/27/16 17:59 08/27/16 17:59 08/27/16 17:59 08/27/16 17:59 Course - Vital Signs Vital signs: Temp Pulse Resp BP Pulse Ox 98.1 F 93 20 147/99 H 98 08/27/16 17:59 08/27/16 17:59 08/27/16 17:59 08/27/16 17:59 08/27/16 17:59
[2016-08-27 18:41] LABS: ABSOLUTE BASOPHILS # (AUTO) 0.1 10^3/uL (0.0-0.2); ABSOLUTE EOSINOPHILS # (AUTO) 0.2 10^3/uL (0.0-0.6); ABSOLUTE MONOCYTES (AUTO) 0.6 10^3/uL (0.1-1.4); BASOPHILS % (AUTO) 0.6 % (0-2); EOSINOPHILS % (AUTO) 2.7 % (0-6); HEMATOCRIT 36.7 % (36.0-47.0); HEMOGLOBIN 12.1 g/dL (12.0-15.5); HGB HCT DIFFERENCE -0.4; LYMPHOCYTES % (AUTO) 33.3 % (13-45); MEAN CORPUSCULAR HEMOGLOBIN 30.2 pg (27.0-33.4); MEAN CORPUSCULAR VOLUME 92 fl (80-97); RED BLOOD COUNT 4.01 10^6/uL (3.72-5.28); RED CELL DISTRIBUTION WIDTH 13.9 % (11.5-14.0); SEGMENTED NEUTROPHILS % (AUTO) 56.4 % (42-78); WHITE BLOOD COUNT 8.9 10^3/uL (4.0-10.5)
--- NOTE | 2016-08-27 19:17 | ER Document Report ---
ED General - General Chief Complaint: Post Problem Stated Complaint: POST OP COMPLICATION Time Seen by Provider: 08/27/16 18:18 Notes: Patient is a 20-year-old female who had an abdominal performed earlier in August with a wound dehiscence afterwards that required repair on the of this month who presents with a small amount of bleeding from the area and increased pain. States this started spontaneously while she was sitting on her couch. Since that time she has had a mild, dull, aching pain to the affected area. Notes that the majority of the bleeding has been coming from the left wound. Sutures are still in place. She has not seen a doctor who actually performed the closure after she had dehiscence. Denies any trauma to the area and states she has been following all recommended activity guidelines. Nothing improves or worsens her pain or bleeding. TRAVEL OUTSIDE OF THE [place] IN LAST 30 DAYS: No - Related Data Allergies/Adverse Reactions: No Known Allergies Allergy (Verified 05/24/16 18:24) Past Medical History - General Information source: Patient - Social History Smoking Status: Current Every Day Smoker Chew tobacco use (# tins/day): No Frequency of alcohol use: None Drug Abuse: None Lives with: Spouse/Significant other Family History: Reviewed & Not Pertinent Patient has suicidal ideation: No Patient has homicidal ideation: No Renal/ Medical History: Denies: Hx Peritoneal Dialysis Past Surgical History: Reports: Hx Orthopedic Surgery - Immunizations Hx Diphtheria, Pertussis, Tetanus Vaccination: Yes Review of Systems - Review of Systems Notes: Constitutional: Negative for fever. HENT: Negative for sore throat. Eyes: Negative for visual changes. Cardiovascular: Negative for chest pain. Respiratory: Negative for shortness of breath. Gastrointestinal: Negative for abdominal pain, vomiting or diarrhea. Genitourinary: Negative for dysuria. Musculoskeletal: Negative for back pain. Skin: Positive for wound bleeding Neurological: Negative for headaches, weakness or numbness. 10 point ROS negative except as marked above and in HPI. Physical Exam - Vital signs Vitals: Temp Pulse Resp BP Pulse Ox 98.1 F 93 20 147/99 H 98 08/27/16 17:59 08/27/16 17:59 08/27/16 17:59 08/27/16 17:59 08/27/16 17:59 Interpretation: Hypertensive Notes: PHYSICAL EXAMINATION: GENERAL: Well-appearing, well-nourished and in no acute distress. HEAD: Atraumatic, normocephalic. EYES: Pupils equal round and reactive to light, extraocular movements intact, sclera anicteric, conjunctiva are normal. ENT: nares patent, oropharynx clear without exudates. Moist mucous membranes. NECK: Normal range of motion, supple without lymphadenopathy LUNGS: Breath sounds clear to auscultation bilaterally and equal. No wheezes rales or rhonchi. HEART: Regular rate and rhythm without murmurs ABDOMEN: Soft, nontender, normoactive bowel sounds. No guarding, no rebound. No masses appreciated. EXTREMITIES: Normal range of motion, no pitting or edema. No cyanosis. NEUROLOGICAL: No focal neurological deficits. Moves all extremities spontaneously and on command. PSYCH: Normal mood, normal affect. SKIN: Warm, Dry, normal turgor, there is a well-healed wound that continues to have Prolene sutures in place. There is a scant amount of bleeding from the left most aspect of the surgical incision without any evidence of wound dehiscence Course - Re-evaluation Re-evalutation: 08/27/16 19:15 Patient presents with concerns of possible repeat wound dehiscence from her C- section. Patient actually had a surgical repair on the of this month and still has Prolene sutures in place. There is no evidence of wound dehiscence, small area of bleeding around one of the left most sutures is identified but again there is no evidence of actual dehiscence anywhere. I think that this is unlikely in the setting that she still has sutures in place and have explained this to the patient. I have asked her to follow-up with the surgeon who performed a repeat surgical closure and have reviewed signs and symptoms that would warrant return to the emergency department. - Vital Signs Vital signs: Temp Pulse Resp BP Pulse Ox 98.1 F 93 20 147/99 H 98 08/27/16 17:59 08/27/16 17:59 08/27/16 17:59 08/27/16 17:59 08/27/16 17:59 - Laboratory Result Diagrams: 08/27/16 18:30 Discharge - Discharge Clinical Impression: Wound infection/hemorrhage, obstetric surgical, condition Condition: Good Disposition: HOME, SELF-CARE Additional Instructions: Please return to the emergency department if the wound opens, you have worsening pain, persistent bleeding from the area, or any other symptoms that are worrisome to you. Please follow-up with the surgeon who performed your operation.
== END 2016-08-27 19:33 | disposition home or self-care (01) ==
LOC: ER 17:25
DX: O86.0 Infection of obstetric surgical wound (principal); O99.335 Smoking (tobacco) complicating the puerperium
CPT/HCPCS: 36415; 85025; 99283

== ENCOUNTER → 2017-02-13 | Outpatient (CLI) | payer BC, OTHER ==
--- NOTE | 2017-02-13 14:02 | RADIOLOGY REPORT (SQ) ---
EXAM DESCRIPTION: CT HEAD WITHOUT COMPLETED DATE/TIME: 02/13/2017 1:54 pm REASON FOR STUDY: HEAD INJURY COMPARISON: None. TECHNIQUE: Axial images acquired through the brain without intravenous contrast. Images reviewed wi th bone, brain and subdural windows. Images stored on PACS. All CT scanners at this facility use dose modulation, iterative reconstruction, and/or weight based d osing when appropriate to reduce radiation dose to as low as reasonably achievable (ALARA). [facility]: Dose Right [facility]: CareDose [facility]: Dose Right [facility]: Teradose 4D [facility]: SquadMail RADIATION DOSE: CT Rad equipment meets quality standard of care and radiation dose reduction techniq ues were employed. CTDIvol: 49.0 mGy. DLP: 783 mGy-cm. mGy. LIMITATIONS: None. FINDINGS: VENTRICLES: Normal size and contour. CEREBRUM: No masses. No hemorrhage. No midline shift. No evidence for acute infarction. Normal gra y/white matter differentiation. No areas of low density in the white matter. CEREBELLUM: No masses. No hemorrhage. No alteration of density. No evidence for acute infarction. EXTRAAXIAL SPACES: No fluid collections. No masses. ORBITS AND GLOBE: No intra- or extraconal masses. Normal contour of globe without masses. CALVARIUM: No fracture. PARANASAL SINUSES: No fluid or mucosal thickening. SOFT TISSUES: No mass or hematoma. A few skin frida in the scalp. OTHER: No other significant finding. IMPRESSION: NORMAL BRAIN CT WITHOUT CONTRAST. EVIDENCE OF ACUTE STROKE: NO. COMMENT: Quality ID # [id number]: Final reports with documentation of one or more dose reduction techniques (e.g., Automated exposure control, adjustment of the mA and/or kV according to patient size, use of iterative reconstruction technique) TECHNICAL DOCUMENTATION: JOB ID: [id number]- All Rights Reserved
== END ==
LOC: RAD 13:33
PROVIDERS: ATTEND Nurse Practitioner Family
DX: S09.90XA Unspecified injury of head, initial encounter (principal); X58.XXXA Exposure to other specified factors, initial encounter; Y93.9 Activity, unspecified; Y92.9 Unspecified place or not applicable; Y99.9 Unspecified external cause status
CPT/HCPCS: 70450

== ENCOUNTER 2018-01-16 15:01 | Emergency (ER) | payer BC, OTHER ==
[2018-01-16 15:32] LABS: APPEARANCE,URINE CLOUDY; BILIRUBIN,URINE NEGATIVE (NEGATIVE); COLOR,URINE YELLOW; GLUCOSE, URINE NEGATIVE (NEGATIVE); KETONES,URINE NEGATIVE (NEGATIVE); LEUKOCYTE ESTERASE,URINE TRACE (NEGATIVE); NITRITE,URINE NEGATIVE (NEGATIVE); PROTEIN,URINE NEGATIVE (NEGATIVE); URINE SPECIFIC GRAVITY 1.016; UROBILINOGEN,URINE NEGATIVE mg/dL (<2.0)
--- NOTE | 2018-01-16 16:01 | ER Document Report ---
ED Medical Screen (RME) - General Chief Complaint: Possible Kidney Stone Stated Complaint: POSSIBLE KIDNEY STONE Time Seen by Provider: 01/16/18 15:49 Mode of Arrival: Ambulatory Information source: Patient Notes: Patient is a 22-year-old female who presents to the emergency department with chief complaint of right lower abdominal pain. Patient reports the pain started suddenly at 6 AM and has been constant since then. Patient reports this feels like a sharp stabbing pain. Patient denies any nausea, vomiting, diarrhea or fever. Patient does report anorexia. Patient states pain is worse with movement. Patient does report a history of kidney stones in the past. She states that at first she thought this might be a kidney stone however her kidney stones typically start with pain in the flank with gradual progression to lower quadrant pain. This time she states the pain started more in her mid abdomen has settled down towards the right lower quadrant. Patient declines the need for any medication for pain or nausea. Exam: Soft mildly tender abdomen, rebound tenderness to periumbilical area and right lower quadrant. I have greeted and performed a rapid initial assessment of this patient. A comprehensive ED assessment and evaluation of the patient, analysis of test results and completion of the medical decision making process will be conducted by additional ED providers. Dictation of this chart was performed using voice recognition software; therefore, there may be some unintended grammatical errors. TRAVEL OUTSIDE OF THE [place] IN LAST 30 DAYS: No - Related Data Allergies/Adverse Reactions: No Known Allergies Allergy (Verified 05/24/16 18:24) Past Medical History Renal/ Medical History: Denies: Hx Peritoneal Dialysis Past Surgical History: Reports: Hx Orthopedic Surgery - Immunizations Hx Diphtheria, Pertussis, Tetanus Vaccination: Yes Physical Exam - Vital signs Vitals: Temp Pulse Resp BP Pulse Ox 98.1 F 98 16 138/87 H 96 01/16/18 15:06 01/16/18 15:06 01/16/18 15:06 01/16/18 15:06 01/16/18 15:06 Course - Vital Signs Vital signs: Temp Pulse Resp BP Pulse Ox 98.1 F 98 16 138/87 H 96 01/16/18 15:06 01/16/18 15:06 01/16/18 15:06 01/16/18 15:06 01/16/18 15:06 - Laboratory Laboratory results interpreted by me: 01/16/18 15:10 Ur Leukocyte Esterase TRACE H Doctor's Discharge - Discharge Referrals: BENNY PERSAUD, [facility] [Primary Care Provider] - Follow up as needed
[2018-01-16] MEDS ORDERED: ONDANSETRON HCL INJ/PF 4 MG/2 ML SDV IV ONE ×2 (16:53→18:36)
[2018-01-16] MEDS ORDERED: MORPHINE SULFATE 10 MG/ML INJ IV ONE ×2 (16:53→18:36)
[2018-01-16 17:07] LABS: ABSOLUTE EOSINOPHILS # (AUTO) 0.3 10^3/uL (0.0-0.6); ABSOLUTE LYMPHOCYTES (AUTO) 2.4 10^3/uL (0.5-4.7); ABSOLUTE MONOCYTES (AUTO) 0.5 10^3/uL (0.1-1.4); ABSOLUTE NEUT (AUTO) 5.5 10^3/uL (1.7-8.2); BASOPHILS % (AUTO) 0.4 % (0-2); EOSINOPHILS % (AUTO) 2.9 % (0-6); HEMATOCRIT 41.1 % (36.0-47.0); HEMOGLOBIN 14.1 g/dL (12.0-15.5); LYMPHOCYTES % (AUTO) 27.8 % (13-45); MEAN CORPUSCULAR HEMOGLOBIN 30.7 pg (27.0-33.4); MEAN CORPUSCULAR HGB CONC 34.3 g/dL (32.0-36.0); MEAN CORPUSCULAR VOLUME 90 fl (80-97); MONOCYTES % (AUTO) 6.1 % (3-13); PLATELET COUNT 326 10^3/uL (150-450); RED BLOOD COUNT 4.58 10^6/uL (3.72-5.28); RED CELL DISTRIBUTION WIDTH 14.3 % (11.5-14.0); SEGMENTED NEUTROPHILS % (AUTO) 62.8 % (42-78); TOTAL CELLS COUNTED % (AUTO) 100 %; WHITE BLOOD COUNT 8.8 10^3/uL (4.0-10.5)
[2018-01-16 17:42] LABS: ALANINE AMINOTRANSFERASE 30 U/L (9-52); ALBUMIN 5.2 g/dL (3.5-5.0); ALKALINE PHOSPHATASE 74 U/L (38-126); ANION GAP 14 (5-19); ASPARTATE AMINO TRANSFERASE 24 U/L (14-36); BILIRUBIN,DIRECT 0.3 mg/dL (0.0-0.4); BILIRUBIN,TOTAL 0.3 mg/dL (0.2-1.3); BLOOD UREA NITROGEN 10 mg/dL (7-20); CALCIUM 10.1 mg/dL (8.4-10.2); CARBON DIOXIDE 29 mmol/L (22-30); CHLORIDE 102 mmol/L (98-107); GLUCOSE 98 mg/dL (75-110); POTASSIUM 4.3 mmol/L (3.6-5.0); SODIUM 144.5 mmol/L (137-145); TOTAL PROTEIN 8.5 g/dL (6.3-8.2)
--- NOTE | 2018-01-16 20:01 | RADIOLOGY REPORT (SQ) ---
EXAM DESCRIPTION: CT ABD/PELVIS WITH IV ORAL COMPLETED DATE/TIME: 01/16/2018 7:44 pm REASON FOR STUDY: RLQ pain, eval for appendicitis COMPARISON: None. TECHNIQUE: CT scan of the abdomen and pelvis performed using helical scanning technique with dynamic intravenous contrast injection. With oral contrast. Images reviewed with lung, soft tissue, and bon e windows. Reconstructed coronal and sagittal MPR images reviewed. Delayed images for evaluation of t he urinary system also acquired. All images stored on PACS. All CT scanners at this facility use dose modulation, iterative reconstruction, and/or weight based d osing when appropriate to reduce radiation dose to as low as reasonably achievable (ALARA). [facility]: Dose Right [facility]: CareDose [facility]: Dose Right [facility]: Teradose 4D [facility]: [employer] CONTRAST TYPE AND DOSE: contrast/concentration: Isovue 350.00 mg/ml; Total Contrast Delivered: 85.0 ml; Total Saline Delivered: 44.0 ml RENAL FUNCTION: None required. The patient is less than 50 years old. RADIATION DOSE: CT Rad equipment meets quality standard of care and radiation dose reduction techniq ues were employed. CTDIvol: 8.5 - 12.0 mGy. DLP: 1056 mGy-cm.. LIMITATIONS: None. FINDINGS: LOWER CHEST: No significant findings. No nodules or infiltrates. LIVER: Normal size. No masses. No dilated ducts. SPLEEN: Normal size. No focal lesions. PANCREAS: No masses. No significant calcifications. No adjacent inflammation or peripancreatic fluid collections. Pancreatic duct not dilated. GALLBLADDER: No identified stones by CT criteria. No inflammatory changes to suggest cholecystitis. ADRENAL GLANDS: No significant masses or asymmetry. RIGHT KIDNEY AND URETER: No solid masses. No significant calcifications. No hydronephrosis or hyd roureter. LEFT KIDNEY AND URETER: No solid masses. No significant calcifications. No hydronephrosis or hydr oureter. AORTA AND VESSELS: No aneurysm. No dissection. Renal arteries, SMA, celiac without stenosis. RETROPERITONEUM: No retroperitoneal adenopathy, hemorrhage or masses. BOWEL AND PERITONEAL CAVITY: No masses or inflammatory changes. No free fluid or peritoneal masses. APPENDIX: Normal. PELVIS: Functional bilateral renal cysts. Largest is 2 cm on the left. ABDOMINAL WALL: No masses. No hernias. BONES: No significant or acute findings. OTHER: No other significant finding. IMPRESSION: NO SIGNIFICANT OR ACUTE FINDING IN THE ABDOMEN OR PELVIS ON CT SCAN WITH IV CONTRAST. TECHNICAL DOCUMENTATION: JOB ID: [id number] Quality ID # [id number]: Final reports with documentation of one or more dose reduction techniques (e.g., Au tomated exposure control, adjustment of the mA and/or kV according to patient size, use of iterative reconstruction technique) 2010 [employer]- All Rights Reserved Reading location - IP/workstation name: [email or web address]
--- NOTE | 2018-01-16 20:38 | ER Document Report ---
ED General - General Chief Complaint: Possible Kidney Stone Stated Complaint: POSSIBLE KIDNEY STONE Time Seen by Provider: 01/16/18 15:49 Mode of Arrival: Ambulatory Notes: E provider note: Patient is a 22-year-old female who presents to the emergency department with chief complaint of right lower abdominal pain. Patient reports the pain started suddenly at 6 AM and has been constant since then. Patient reports this feels like a sharp stabbing pain. Patient denies any nausea, vomiting, diarrhea or fever. Patient does report anorexia. Patient states pain is worse with movement. Patient does report a history of kidney stones in the past. She states that at first she thought this might be a kidney stone however her kidney stones typically start with pain in the flank with gradual progression to lower quadrant pain. This time she states the pain started more in her mid abdomen has settled down towards the right lower quadrant. Patient declines the need for any medication for pain or nausea. My HPI: Patient continues with intermittent sharp right lower pelvic pain. No McBurney's point tenderness. Patient denies dysuria or vaginal discharge at this time. Patient continues to deny nausea, vomiting, diarrhea, fever. States last menstrual period was 2 weeks ago. Patient does admit to an extensive history with endometriosis with multiple endoscopic surgeries, history of ovarian cysts as well. Past medical history: Kidney stones, endometriosis, ovarian cysts Medications: Effexor, Ambien Allergies: None Surgical history: section x1, endoscopic endometrial some surgery x5 Patient admits to cigarette smoking, denies illicit drug use, denies EtOH use. TRAVEL OUTSIDE OF THE [place] IN LAST 30 DAYS: No - Related Data Allergies/Adverse Reactions: No Known Allergies Allergy (Verified 05/24/16 18:24) Past Medical History - General Information source: Patient - Social History Smoking Status: Current Every Day Smoker Lives with: Family Family History: Reviewed & Not Pertinent Patient has suicidal ideation: No Patient has homicidal ideation: No Renal/ Medical History: Denies: Hx Peritoneal Dialysis Past Surgical History: Reports: Hx Orthopedic Surgery - Immunizations Hx Diphtheria, Pertussis, Tetanus Vaccination: Yes Review of Systems - Review of Systems Constitutional: See HPI EENT: No symptoms reported Cardiovascular: No symptoms reported Respiratory: No symptoms reported Gastrointestinal: See HPI Genitourinary: See HPI Female Genitourinary: See HPI Musculoskeletal: denies: Back pain Skin: No symptoms reported Hematologic/Lymphatic: No symptoms reported Neurological/Psychological: No symptoms reported Physical Exam - Vital signs Vitals: Temp Pulse Resp BP Pulse Ox 98.1 F 98 16 138/87 H 96 01/16/18 15:06 01/16/18 15:06 01/16/18 15:06 01/16/18 15:06 01/16/18 15:06 - Notes Notes: GENERAL: Alert, interacts well. No acute distress. HEAD: Normocephalic, atraumatic. EYES: Pupils equal, round, and reactive to light. Extraocular movements intact. ENT: Oral mucosa moist, tongue midline. NECK: Full range of motion. Supple. Trachea midline. LUNGS: Clear to auscultation bilaterally, no wheezes, rales, or rhonchi. No respiratory distress. HEART: Regular rate and rhythm. No murmur ABDOMEN: Soft, non-tender. Non-distended. Bowel sounds present in all 4 quadrants. No McBurney's point tenderness, no Oh sign. Right pelvic pain decreases upon deep palpation increases upon rebound tenderness. EXTREMITIES: Moves all 4 extremities spontaneously. No edema, normal radial and dorsalis pedis pulses bilaterally. No cyanosis. BACK: no cervical, thoracic, lumbar midline tenderness. No saddle anesthesia, normal distal neurovascular exam. No CVA tenderness bilaterally NEUROLOGICAL: Alert and oriented x3. Normal speech. cranial nerves II through XII grossly intact PSYCH: Normal affect, normal mood. SKIN: Warm, dry, normal turgor. No rashes or lesions noted. Course - Re-evaluation Re-evalutation: 01/16/18 20:36 CT scan originally states patient has a renal cyst. Discussed this with Dr. Chong radiologist who states that was a miss type should be ovarian cyst. Discussed CT results with patient at bedside. No signs of leukocytosis, no signs of anemia, no signs of urinary tract infection. Discussed close follow-up with [facility] Return precautions discussed - Vital Signs Vital signs: Temp Pulse Resp BP Pulse Ox 98.1 F 98 16 138/87 H 96 01/16/18 15:06 01/16/18 15:06 01/16/18 15:06 01/16/18 15:06 01/16/18 15:06 - Laboratory Result Diagrams: 01/16/18 16:34 01/16/18 16:34 Laboratory results interpreted by me: 01/16/18 01/16/18 01/16/18 15:10 16:34 16:34 RDW 14.3 H Total Protein 8.5 H Albumin 5.2 H Ur Leukocyte Esterase TRACE H Discharge - Discharge Clinical Impression: Ovarian cyst Qualifiers: Laterality: bilateral Qualified Code(s): N83.201 - Unspecified ovarian cyst, right side Condition: Stable Disposition: HOME, SELF-CARE Instructions: Ovarian Cyst ([facility]) Additional Instructions: As we discussed you have been seen and treated in the emergency department for ovarian cyst. You should follow-up with [facility]. Phone numbers will be within this packet. Please return to the emergency room for any other concerning symptoms. Forms: Return to Work Referrals: BENNY PERSAUD FNP-C [Primary Care Provider] - Follow up as needed [facility] [Provider Group] - Follow up as needed MUKESH ESCOBAR MD [ACTIVE STAFF] - Follow up as needed
[2018-01-16 21:59] VITALS: BP 125/88
== END 2018-01-16 21:59 | disposition home or self-care (01) ==
LOC: ER 15:01
DX: N83.201 Unspecified ovarian cyst, right side (principal); R10.2 Pelvic and perineal pain; R63.0 Anorexia; F17.210 Nicotine dependence, cigarettes, uncomplicated; Z87.442 Personal history of urinary calculi; Z87.42 Personal history of other diseases of the female genital tract; Z79.899 Other long term (current) drug therapy
CPT/HCPCS: 96376; 99284; 96374; 96375; 36415; 84703; 85025; 80053; 81001; 74177; J2270; J2405

== ENCOUNTER 2018-03-24 09:58 | Emergency (ER) | payer OTHER ==
[2018-03-24 10:35] VITALS: BP 117/80
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
[2018-03-24] MEDS ORDERED: ACETAMINOPHEN 325 MG TABLET PO ONE (12:30)
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
== END 2018-03-24 13:47 | disposition home or self-care (01) ==
LOC: ER 09:58
DX: M25.561 Pain in right knee (principal); M79.641 Pain in right hand; R40.4 Transient alteration of awareness; V89.2XXA Person injured in unspecified motor-vehicle accident, traffic, initial encounter
CPT/HCPCS: 70450; 99284